=== PATIENT | female | born 1975 | race Caucasian/White ===

== ENCOUNTER → 2016-08-03 07:56 | Outpatient (CLI) | payer BC | END | disposition home or self-care (01) | LOC: D.CT 07:56 | DX: R22.1 Localized swelling, mass and lump, neck (principal) ==

== ENCOUNTER 2016-09-11 02:30 | Emergency (ER) | payer SELFPAY | END 2016-09-11 02:52 | disposition PTX | LOC: D.ER 02:30 | DX: I46.9 Cardiac arrest, cause unspecified (principal) ==